=== PATIENT | male | born 1990 | race Caucasian/White ===

== ENCOUNTER 2016-06-22 13:02 | Emergency (ER) | payer BC ==
[~2016-06-22] VITALS: Ht 185.4 cm; Wt 99.0 kg
[~2016-06-22 13:02] MED LIST: VENTAER INH
[2016-06-22 13:20] VITALS: BP 150/61; PULSE 84; RESP 16; TEMP 97.9; O2SAT 96
--- NOTE | 2016-06-22 14:45 | PD ---
HPI Chief Complaint: Cold / Flu Symptoms Time Seen by Provider: 14:39 Travel History International Travel<30 days: No Contact w/Intl Traveler<30days: No Traveled to known affect area: No History of Present Illness HPI 25-year-old male presents to the emergency room for evaluation of productive cough, congestion, sore throat, chills, and headache for the past 3 days. Patient states he was sick recently (1 month ago) and improved but then symptoms returned and seems worse. He has been taking [id number] NyQuil and DayQuil without significant relief. He denies fever, nausea, and vomiting. He works at a [employer]. No chronic medical conditions or daily medications. PFSH Past Medical History Diminished Hearing: No Social History Alcohol Use: No Tobacco Use: No (QUIT 2009) Substance Use: No Allergies-Medications (Allergen,Severity, Reaction): Coded Allergies: No Known Allergies (Unverified , 06/22/16) Reported Meds & Prescriptions Reported Meds & Active Scripts Active Ventolin Hfa 18 GM Inh (Albuterol Sulfate) 90 Mcg/Act Aer 2 Puff INH Q4H PRN Review of Systems Except as stated in HPI: all other systems reviewed are Neg Physical Exam Narrative GENERAL: Well-nourished, well-developed male in no acute distress. Afebrile. Ambulatory. SKIN: Warm and dry. HEAD: Normocephalic. Tenderness to palpation of the maxillary sinuses. EYES: No scleral icterus. No injection or drainage. ENT: Mucosa pink and moist. Mild erythema without exudates. No uvular edema. No uvular, palatal, or tonsillar deviation. Airway patent. Nasal turbinates appear normal without nasal blood, purulent drainage or septal hematoma. EARS: Bilateral pinnae and external canals appear within normal limits. Bilateral tympanic membranes without erythema, dullness or perforation. NECK: Supple, trachea midline. No JVD or lymphadenopathy. CARDIOVASCULAR: Regular rate and rhythm without murmurs, gallops, or rubs. RESPIRATORY: Breath sounds equal bilaterally. No accessory muscle use. No crackles, rales, wheezes, or rhonchi. Data Data Last Documented VS Vital Signs Date Time Temp Pulse Resp B/P Pulse Ox O2 Delivery O2 Flow Rate FiO2 06/22/16 13:20 97.9 84 16 150/61 96 MDM Medical Decision Making Medical Screen Exam Complete: Yes Emergency Medical Condition: Yes Medical Record Reviewed: Yes Differential Diagnosis Sinusitis versus URI versus bronchitis Narrative Course 25-year-old male presents to the emergency room for evaluation of cough and cold symptoms for the past 3 days. Patient was recently ill but had double worsening of symptoms. He is afebrile well-appearing in the emergency room. Vital signs stable. Physical exam reveals tenderness to palpation of the maxillary sinuses, mildly erythematous pharynx, and mild purulent nasal drainage. Lung sounds clear and equal bilaterally. Given acute worsening of symptoms, he will be treated for sinusitis with Augmentin. Told to follow up with a primary care physician and return for worsening symptoms. He understands and agrees to plan. Diagnosis Primary Impression: Sinusitis, acute maxillary Qualified Code: J01.00 - Acute non-recurrent maxillary sinusitis Referrals: Primary Care Physician Patient Instructions: General Instructions, Sinusitis (ED) Additional Instructions: Rest and drink plenty of fluids. Augmentin as directed, until gone. Follow-up with a primary care physician. Return to the emergency room for worsening symptoms. Med/Other Pt SpecificInfo: Prescription(s) given Scripts Amoxicillin-Clavulanate (Augmentin)875-125 mg [id number] Mg PO BID 7 Days Ref 0 not for use in CrCl <30 ml/min. Prov:Jon Hernandez MD 06/22/16 Disposition: 01 DISCHARGE HOME Condition: Stable Susan Agarwal Jun 22, 2016 14:45
[2016-06-22] MEDS ORDERED: AUGM875T PO (14:46)
== END 2016-06-22 15:48 | disposition home or self-care (01) ==
LOC: PHEFT 13:02
DX: J01.00 Acute maxillary sinusitis, unspecified (principal); Z87.891 Personal history of nicotine dependence
CPT/HCPCS: 99283

== ENCOUNTER 2017-10-23 20:40 | Emergency (ER) | payer BC ==
[~2017-10-23 20:40] MED LIST changes: +AUGM875T PO
[2017-10-23 20:53] VITALS: BP 158/72; PULSE 87; RESP 20; TEMP 98.4; O2SAT 97
--- NOTE | 2017-10-23 21:38 | PD ---
HPI Chief Complaint: Cold / Flu Symptoms Time Seen by Provider: 21:24 Travel History International Travel<30 days: No Contact w/Intl Traveler<30days: No Traveled to known affect area: No History of Present Illness HPI Patient 26-year-old male presents emergency department for evaluation of sore throat body aches cough congestion nausea without vomiting which started yesterday. Patient states she has had some abdominal cramping but no abdominal pain. Nonproductive cough. He states he has a young daughter who is an who is been having some runny nose recently to. He denies any fevers. States symptoms are moderate, gradually worsening over the past day and a half, associated signs symptoms in context as above. No history of immunocompromise, no HIV no diabetes, PFSH Past Medical History Medical History: Denies Significant Hx Diminished Hearing: No Tetanus Vaccination: < 5 Years Influenza Vaccination: No Past Surgical History Surgical History: No Previous Surgery Social History Alcohol Use: No Tobacco Use: No (QUIT 2009) Substance Use: No Allergies-Medications (Allergen,Severity, Reaction): Coded Allergies: No Known Allergies (Unverified , 06/22/16) Reported Meds & Prescriptions Reported Meds & Active Scripts Active Review of Systems Except as stated in HPI: all other systems reviewed are Neg Physical Exam Narrative GENERAL: Well-developed well-nourished, sweaty but no obvious distress. SKIN: Focused skin assessment warm/dry. HEAD: Atraumatic. Normocephalic. EYES: Pupils equal and round. No scleral icterus. No injection or drainage. ENT: No nasal bleeding or discharge. Mucous membranes pink and moist. TMs clear bilaterally, oropharynx clear moist NECK: Trachea midline. No JVD. CARDIOVASCULAR: Regular rate and rhythm. No murmur appreciated. RESPIRATORY: No accessory muscle use. Clear to auscultation. Breath sounds equal bilaterally. GASTROINTESTINAL: Abdomen soft, non-tender, nondistended. Hepatic and splenic margins not palpable. MUSCULOSKELETAL: No obvious deformities. No clubbing. No cyanosis. No edema. NEUROLOGICAL: Awake and alert. No obvious cranial nerve deficits. Motor grossly within normal limits. Normal speech. PSYCHIATRIC: Appropriate mood and affect; insight and judgment normal. Data Data Last Documented VS Vital Signs Date Time Temp Pulse Resp B/P (MAP) Pulse Ox O2 Delivery O2 Flow Rate FiO2 10/23/17 22:45 10/23/17 22:39 78 18 100 Room Air 10/23/17 20:53 98.4 Orders Orders Influenzae A/B Antigen (10/23/17 21:37) Basic Metabolic Panel (Bmp) (10/23/17 21:37) Complete Blood Count With Diff (10/23/17 21:37) Ecg Monitoring (10/23/17 21:37) Iv Access Insert/Monitor (10/23/17 21:37) Oximetry (10/23/17 21:37) Oxygen Administration (10/23/17 21:37) Sodium Chloride 0.9% Flush (Ns Flush) (10/23/17 21:45) Chest, Pa & Lat (10/23/17 21:37) Sodium Chlor 0.9% 1000 Ml Inj (Ns 1000 M (10/23/17 21:45) Ondansetron Odt (Zofran Odt) (10/23/17 21:45) Ed Discharge Order (10/23/17 22:37) Labs Laboratory Tests Test 10/23/17 21:50 White Blood Count 14.9 TH/MM3 Red Blood Count 5.01 MIL/MM3 Hemoglobin 16.5 GM/DL Hematocrit 48.2 % Mean Corpuscular Volume 96.2 FL Mean Corpuscular Hemoglobin 33.0 PG Mean Corpuscular Hemoglobin Concent 34.3 % Red Cell Distribution Width 11.9 % Platelet Count 281 TH/MM3 Mean Platelet Volume 7.8 FL Neutrophils (%) (Auto) 74.3 % Lymphocytes (%) (Auto) 16.5 % Monocytes (%) (Auto) 5.8 % Eosinophils (%) (Auto) 0.9 % Basophils (%) (Auto) 2.5 % Neutrophils # (Auto) 11.0 TH/MM3 Lymphocytes # (Auto) 2.5 TH/MM3 Monocytes # (Auto) 0.9 TH/MM3 Eosinophils # (Auto) 0.1 TH/MM3 Basophils # (Auto) 0.4 TH/MM3 CBC Comment DIFF FINAL Differential Comment Blood Urea Nitrogen 14 MG/DL Creatinine 1.10 MG/DL Random Glucose 88 MG/DL Calcium Level 9.3 MG/DL Sodium Level 140 MEQ/L Potassium Level 3.9 MEQ/L Chloride Level 106 MEQ/L Carbon Dioxide Level 26.9 MEQ/L Anion Gap 7 MEQ/L Estimat Glomerular Filtration Rate 80 ML/MIN MDM Medical Decision Making Medical Screen Exam Complete: Yes Emergency Medical Condition: Yes Differential Diagnosis URI, pneumonia, sepsis unlikely, influenza unlikely peer Narrative Course Patient room to the emergency department, he actually appears well and appears to be healthy at baseline, he is somewhat sweaty and even diaphoretic here, white blood cell count 14.9, slight left shift with 74.3 neutrophils, chemistries within normal limits. He was given Zofran and normal saline and defervesced quite well and is feeling much better. Chest x-ray was negative, influenza test negative, throat was very clear, appears that this is an upper respiratory infection. Discussed aggressive fluid hydration, symptomatic management home and return to ED criteria. Discussed follow-up with a primary care physician. He is stable for discharge Diagnosis Primary Impression: Upper respiratory infection, acute Patient Instructions: General Instructions, Upper Respiratory Infection (DC) Disposition: 01 DISCHARGE HOME Condition: Stable Miles Gary MD October 23, 2017 21:38
[2017-10-23] MEDS ORDERED: ONDANSETRON ODT 4 MG TAB PO ONE (21:45)
[2017-10-23] MEDS ORDERED: SODIUM CHLOR 0.9% 1000 ML INJ 1,000 ML IV ONE (21:45)
[2017-10-23] MEDS ORDERED: SODIUM CHLORIDE 0.9% FLUSH 10 ML FLUSH IVF PRN (21:45)
[2017-10-23 21:58] LABS: BASOPHIL # 0.4 TH/MM3 (0-0.2); BASOPHIL % 2.5 % (0.0-2.0); EOSINOPHIL # 0.1 TH/MM3 (0-0.4); EOSINOPHIL % 0.9 % (0.0-4.0); HEMATOCRIT 48.2 % (39.0-51.0); HEMOGLOBIN 16.5 GM/DL (13.0-17.0); LYMPH % 16.5 % (9.0-44.0); LYMPHOCYTE # 2.5 TH/MM3 (1.0-4.8); MEAN CELL VOLUME 96.2 FL (80.0-100.0); MEAN CORPUSCULAR HGB CONC 34.3 % (32.0-36.0); MEAN PLATELET VOLUME 7.8 FL (7.0-11.0); MONO % 5.8 % (0.0-8.0); MONOCYTE # 0.9 TH/MM3 (0-0.9); NEUT % 74.3 % (16.0-70.0); PLATELET COUNT 281 TH/MM3 (150-450); RED BLOOD COUNT 5.01 MIL/MM3 (4.50-5.90); RED CELL DISTRIBUTION WIDTH 11.9 % (11.6-17.2); WHITE BLOOD COUNT 14.9 TH/MM3 (4.0-11.0)
--- NOTE | 2017-10-23 22:16 | RADRPT ---
EXAM DATE: 10/23/2017 10:07 PM EDT AGE/SEX: 26 years / Male INDICATIONS: Cough, body aches, flu-like symptoms for 24 hours CLINICAL DATA: This is the patient's initial encounter. Patient reports that signs and symptoms have been present for 1 day and indicates a pain score of 0/10. MEDICAL/SURGICAL HISTORY: None. None. COMPARISON: No prior [facility] exams available for comparison. FINDINGS: PA and lateral views of the chest demonstrate the lungs to be symmetrically aerated without evidence of mass, infiltrate or effusion. The cardiomediastinal contours are unremarkable. Osseous structures are intact. CONCLUSION: No acute intrathoracic disease. Electronically signed by: Jax Spencer MD 10/23/2017 10:14 PM EDT
[2017-10-23 22:17] LABS: CALCIUM 9.3 MG/DL (8.5-10.1)
[2017-10-23 22:18] LABS: BICARBONATE 26.9 MEQ/L (21.0-32.0)
[2017-10-23 22:21] LABS: CREATININE 1.1 MG/DL (0.60-1.30)
[2017-10-23 22:39] VITALS: BP 140/66; PULSE 78; RESP 18; O2SAT 100
== END 2017-10-23 22:46 | disposition home or self-care (01) ==
LOC: PHEFT 20:40
DX: J06.9 Acute upper respiratory infection, unspecified (principal)
CPT/HCPCS: 71046; 80048; 85025; 87804; 99284; J7030